=== PATIENT | female | born 1960 | race Hispanic/Latino ===

== ENCOUNTER → 2018-08-09 | Day surgery (SDC) | payer BC ==
[2018-08-08 15:44] LABS: BASOPHILS # (AUTO) 0.1 (0.0-0.1); BASOPHILS % 0.6 % (0.0-1.0); EOSINOPHILS # (AUTO) 0.1 (0.0-0.4); EOSINOPHILS % 0.8 % (0.0-6.0); HEMATOCRIT 38.6 % (34.2-44.1); HEMOGLOBIN 12.9 g/dL (12.0-16.0); LYMPHOCYTES # (AUTO) 3.8 (1.0-3.2); LYMPHOCYTES % 44.7 % (18.0-39.1); MEAN CORPUSCULAR HEMOGLOBIN 30.8 pg (28-32); MEAN CORPUSCULAR HGB CONC 33.4 g/dL (31-35); MEAN CORPUSCULAR VOLUME 92.1 fL (81-99); MONOCYTES # (AUTO) 0.6 (0.2-0.8); MONOCYTES % 6.8 % (4.4-11.3); NEUTROPHILS % 46.9 % (38.7-80.0); PLATELET COUNT 289 x10e3/uL (140-360); RED BLOOD COUNT 4.19 x10e6/uL (3.6-5.1); RED CELL DISTRIBUTION WIDTH 12.3 % (11.7-14.4)
[2018-08-08 16:18] LABS: ANION GAP 13.4 mmol/L (8-16); BLOOD UREA NITROGEN 12 mg/dL (7-26); BUN/CREATININE RATIO 17 (6-25); CALCIUM 9.5 mg/dL (8.4-10.2); CARBON DIOXIDE 27 mmol/L (22-29); CHLORIDE 100 mmol/L (98-107); CREATININE, SERUM 0.71 mg/dL (0.57-1.11); EST GLOMERULAR FILTRATION RATE > 60 ML/MIN (60-); GLUCOSE 100 mg/dL (74-118); POTASSIUM 3.4 mmol/L (3.5-5.1); SODIUM 137 mmol/L (136-145)
[~2018-08-09] MED LIST: BUPIVACAINE 0.25%/EPI 30ML SDV INJ ONE; FENTANYL CITRATE/PF 100MCG/2 ML INJ ONE; IBUPROFEN400 MG PO; LIDOCAINE HCL 1% LOCAL INJ 20 ML VIAL ONE; MELOXICAM7.5 MG PO; MIDAZOLAM HCL 2 MG/2 ML VIAL ONE; OMEPRAZOLE40 MG PO; PENICILLIN PO; PROPOFOL IV EMULSION 10 MG/ML 20 ML VIAL ONE
[2018-08-09 09:45] VITALS: BP 113/88
--- NOTE | 2018-08-09 09:48 | Operative Report ---
DATE OF PROCEDURE: August 09, 2018 PREOPERATIVE DIAGNOSIS: Cyst of the left breast. POSTOPERATIVE DIAGNOSIS: Cyst of the left breast. PROCEDURE PERFORMED: Incision and drainage of epidermal inclusion cyst of the left breast. ANESTHESIA: Local plain Xylocaine 1% and IV sedation. ESTIMATED BLOOD LOSS: Minimal. DRAINS: None. COMPLICATIONS: None. INDICATIONS AND FINDINGS: The patient is a 50-year-old female admitted for excision of a mass of the left breast that had been increasing in size for the last several months. INTRAOPERATIVE FINDINGS: The patient had an inclusion cyst located in the left breast medial to the 9 o'clock position. DESCRIPTION OF PROCEDURE: With the patient lying on the table in the supine position and after administration of general anesthesia, she was prepped and draped for excision of the mass of the left breast. An elliptical incision was made directly over the mass after infiltration with 1% plain Xylocaine. Then the dissection was carried down to the skin and subcutaneous tissue. Flaps were raised superiorly and inferiorly and deep to the lesion using sharp dissection. The cyst was excised completely. Bleeding points were cauterized. Then the wound was closed in 2 layers using 4-0 Vicryl for the subcuticular plane. The skin was closed with Dermabond. Sterile Band-Aid dressing was placed. The patient tolerated the procedure well, and was taken to the recovery room in stable condition. Job#: [id number] CARLOS
== END | disposition home or self-care (01) ==
LOC: OR 06:36
PROVIDERS: ATTEND Surgery
DX: L72.0 Epidermal cyst (principal); E66.9 Obesity, unspecified; Z01.810 Encounter for preprocedural cardiovascular examination; Z01.812 Encounter for preprocedural laboratory examination; Z68.35 Body mass index [BMI] 35.0-35.9, adult
CPT/HCPCS: 11402; 12031; 36415; 80048; 85025; 88304; 93005; J2001; J2250

== ENCOUNTER → 2018-08-27 | Outpatient (CLI) | payer BC ==
[~2018-08-27] MED LIST changes: -BUPIVACAINE 0.25%/EPI 30ML SDV INJ ONE; -FENTANYL CITRATE/PF 100MCG/2 ML INJ ONE; -LIDOCAINE HCL 1% LOCAL INJ 20 ML VIAL ONE; -MIDAZOLAM HCL 2 MG/2 ML VIAL ONE; -PROPOFOL IV EMULSION 10 MG/ML 20 ML VIAL ONE
--- NOTE | 2018-08-27 10:47 | Diagnostic Imaging Report ---
PROCEDURE: Frontal and lateral views of the chest. COMPARISON: None. INDICATIONS: POSTERIOR CHEST PAIN FINDINGS: Lines/tubes: None. Lungs: The lungs are well inflated and clear. There is no evidence of pneumonia or pulmonary edema. Pleura: There is no pleural effusion or pneumothorax. Heart and mediastinum: The heart and the mediastinum are normal. Pulmonary vasculature is normal. Bones: No acute bony abnormality. IMPRESSION: 1. No acute cardiopulmonary abnormalities. Jimmy Boudreaux M.D. Dictated by: Jimmy Boudreaux M.D. on 08/27/2018 at 10:56 Electronically approved by: Jimmy Boudreaux M.D. on 08/27/2018 at 10:56
== END ==
LOC: RAD 09:06
PROVIDERS: ATTEND Internal Medicine
DX: R05 Cough (principal); R07.89 Other chest pain
CPT/HCPCS: 71046

== ENCOUNTER 2019-06-12 13:39 | Emergency (ER) | payer BC ==
[~2019-06-12] VITALS: Ht 154.9 cm; Wt 86.6 kg
--- OUTSIDE RECORDS SUMMARY | 2019-06-12 13:41 | XMS REPORT ---
Author Author [facility] Address Unknown Phone Unavailable Care Team Providers Care Primary Montessori Teacher Name Role Phone JENNIFER ZIMMERMAN Unavailable Unavailable Problems This patient has no known problems. Allergies, Adverse Reactions, Alerts This patient has no known allergies or adverse reactions. Medications This patient has no known medications. Results Test Description Test Time Test Comments Text Results Atomic Results Result Comments CHEST 2 VIEWS 2018-08-27 10:56:00 [facility] [address] [place] [address] Patient Name: JOSE OLIVER MR #: [id number] : 1960 Age/Sex: 58/F Req #: [id number] Adm Physician: Ordered by: JENNIFER ZIMMERMAN MD Report #: [id number] Location: [facility] Room/Bed: Procedure: [id number] DX/CHEST 2 VIEWS Exam Date: 08/27/18 Exam Time: 917 REPORT STATUS: Signed PROCEDURE: Frontal and lateral views of the chest. CO MPARISON: None. INDICATIONS: POSTERIOR CHEST PAIN FINDINGS: Lines/tubes: None. Lungs: The lungs are well inflated and clear. There is no evidence of pneumonia or pulmonary edema. Pleura: There is no pleural effusion or pneumothorax. Heart and mediastinum: The heart and the mediastinum are normal. Pulmonary vasculature is normal. Bones: No acute bony abnormality. IMPRESSION: 1. No acute cardiopulmonary abnormalities. Ron Boudreaux M.D. Dictated by: Ron Boudreaux M.D. on 08/27/2018 at 10:56 Electronically approved by: Ron Boudreaux M.D. on 08/27/2018 at 10:56 Dictated By: RON BOUDREAUX MD [id number] Transcribed By: TREVON on 08/27/18 1056 COPY TO: JENNIFER ZIMMERMAN MD
[2019-06-12] MEDS ORDERED: TETANUS/DIPHTHERIA TOX ADULT 0.5 ML SYR IM ONE (14:15)
[2019-06-12] MEDS ORDERED: TETANUS/DIPHTHERIA TOX ADULT 0.5 ML SYR ONE (14:24)
--- NOTE | 2019-06-12 15:01 | Diagnostic Imaging Report ---
Exam: Right hand 3 views Clinical history: Laceration Findings: Soft tissue defect is noted medial to the base of the Proximal phalanx. There is no evidence of acute fracture, malalignment, or radiopaque foreign body. The articular joints are within normal limits. Impression: 1. Soft tissue defect medial to the fifth digit. No radiographic evidence of acute osseous injury. Signed by: Dr. Edgard Bello MD on 06/12/2019 2:58 PM
--- NOTE | 2019-06-12 15:15 | NUR ---
FIRST CALL; NO ANSWER IN LOBBY OUTSIDE OR RESTROOM.
--- NOTE | 2019-06-12 15:20 | NUR ---
ATTEMPTED TO CALL PT CELL NUMBER WITH NO ANSWER.
== END 2019-06-12 16:53 | disposition home or self-care (01) ==
LOC: ER 13:39
DX: S61.411A Laceration without foreign body of right hand, initial encounter (principal); W26.0XXA Contact with knife, initial encounter; Y93.G1 Activity, food preparation and clean up; Y92.000 Kitchen of unspecified non-institutional (private) residence as the place of occurrence of the external cause; E78.5 Hyperlipidemia, unspecified
CPT/HCPCS: 90714; 99283

== ENCOUNTER 2019-06-23 08:56 | Emergency (ER) | payer BC ==
[~2019-06-23] VITALS: Ht 154.9 cm; Wt 86.6 kg
--- NOTE | 2019-06-23 09:12 | NUR ---
X5 SUTURES REMOVED FROM RIGHT LATERAL HAND BY DR KINCAID, TOELRATED WELL.
== END 2019-06-23 09:31 | disposition home or self-care (01) ==
LOC: ER 08:56
DX: Z48.02 Encounter for removal of sutures (principal)
CPT/HCPCS: 99282

== ENCOUNTER → 2021-06-01 | Outpatient (CLI) | payer BC | LOC: MRI 09:50 | PROVIDERS: ATTEND Psychiatry & Neurology Neurology | DX: M54.81 Occipital neuralgia (principal); R41.3 Other amnesia | CPT/HCPCS: 70551 ==

== ENCOUNTER → 2021-11-17 | Day surgery (SDC) | payer BC ==
[~2021-11-17] MED LIST changes: +FENTANYL CITRATE/PF 100MCG/2 ML INJ ONE; +LIDOCAINE HCL 2% LOCAL INJ 5 ML SDV VIAL INJ ONE; +LOSARTAN POTASS25 MG PO; +METFORMIN HCL500 MG PO; +METOCLOPRAMIDE HCL 10 MG/2ML VIAL ONE; +MIDAZOLAM HCL 2 MG/2 ML VIAL ONE; +OMEGA-31000 MG PO; +PROGESTERONE100 MG PO; +PROPOFOL IV EMULSION 10 MG/ML 20 ML VIAL ONE; +SIMVASTATIN20 MG PO; +[UNRECOGNIZED DRUG - OTHER] PO; +metoprolol PO
[2021-11-17 12:56] VITALS: BP 101/65
== END | disposition home or self-care (01) ==
LOC: OR 10:20
PROVIDERS: ATTEND Internal Medicine Gastroenterology
DX: K29.70 Gastritis, unspecified, without bleeding (principal); K62.1 Rectal polyp; K20.90 Esophagitis, unspecified without bleeding; K57.30 Diverticulosis of large intestine without perforation or abscess without bleeding; K64.8 Other hemorrhoids; E11.9 Type 2 diabetes mellitus without complications; I10 Essential (primary) hypertension; E78.00 Pure hypercholesterolemia, unspecified; Z01.812 Encounter for preprocedural laboratory examination; Z20.822 Contact with and (suspected) exposure to COVID-19; Z79.84 Long term (current) use of oral hypoglycemic drugs; Z79.899 Other long term (current) drug therapy; Z68.31 Body mass index [BMI] 31.0-31.9, adult
CPT/HCPCS: 36415; 43239; 45380; 82948; C9113; J2001; J2250; J2704; J2765; J3010; U0002; 45378

== ENCOUNTER → 2022-06-30 | Outpatient (CLI) | payer BC ==
[~2022-06-30] MED LIST changes: -FENTANYL CITRATE/PF 100MCG/2 ML INJ ONE; -LIDOCAINE HCL 2% LOCAL INJ 5 ML SDV VIAL INJ ONE; -METOCLOPRAMIDE HCL 10 MG/2ML VIAL ONE; -MIDAZOLAM HCL 2 MG/2 ML VIAL ONE; -PROPOFOL IV EMULSION 10 MG/ML 20 ML VIAL ONE
== END ==
LOC: US 12:11
PROVIDERS: ATTEND Internal Medicine Gastroenterology
DX: K29.70 Gastritis, unspecified, without bleeding (principal); R10.10 Upper abdominal pain, unspecified; I10 Essential (primary) hypertension; Z68.31 Body mass index [BMI] 31.0-31.9, adult
CPT/HCPCS: 76700

== ENCOUNTER → 2024-12-11 | Outpatient (REF) | payer BC | LOC: MAMMO 11:50 | PROVIDERS: ATTEND Internal Medicine | DX: Z12.31 Encounter for screening mammogram for malignant neoplasm of breast (principal) | CPT/HCPCS: 77067 ==

== ENCOUNTER → 2024-12-13 | Day surgery (SDC) | payer BC ==
[~2024-12-13] MED LIST changes: +FENTANYL CITRATE/PF 100MCG/2 ML INJ ONE; +PROPOFOL IV EMULSION 10 MG/ML 20 ML VIAL ONE
[2024-12-13] MEDS: LACTATED RINGER'S 1,000 ML ONE (11:17)
[2024-12-13 11:58] VITALS: TEMP 97.5
[2024-12-13 12:20] VITALS: BP 128/76; PULSE 66; RESP 18; O2SAT 99
== END | disposition home or self-care (01) ==
LOC: OR 12-11 12:03
PROVIDERS: ATTEND Internal Medicine Gastroenterology
DX: K29.60 Other gastritis without bleeding (principal); K29.50 Unspecified chronic gastritis without bleeding; K20.90 Esophagitis, unspecified without bleeding; K21.9 Gastro-esophageal reflux disease without esophagitis; Z71.3 Dietary counseling and surveillance; I10 Essential (primary) hypertension; Z71.89 Other specified counseling; E78.5 Hyperlipidemia, unspecified; E11.9 Type 2 diabetes mellitus without complications; Z01.810 Encounter for preprocedural cardiovascular examination; Z79.84 Long term (current) use of oral hypoglycemic drugs; Z79.899 Other long term (current) drug therapy; Z68.32 Body mass index [BMI] 32.0-32.9, adult; Z86.19 Personal history of other infectious and parasitic diseases
CPT/HCPCS: 43239; 93005; J2470; J2704; J3010; J7121